=== PATIENT | female | born 1950 | race African-American/Black ===

== ENCOUNTER 2024-08-17 05:55 | Day surgery (SDC) | payer MEDICARE, BC, SELFPAY ==
[2024-08-17] VITALS (17 sets, daily range): BP systolic 103–151; BP diastolic 57–81; BMI 23.6
--- NOTE | 2024-08-17 10:08 | ITS.CL.ABL ---
[facility] - Ablation
Ablation
Procedure Report:
ELECTROPHYSIOLOGY ABLATION REPORT
Date of Procedure: August 17, 2024
Referring: Dr. Andre Tucker
INDICATION: Narrow complex tachycardia�long RP 130 bpm on telemetry with significant side effects and headaches from even low-dose metoprolol
HISTORY: As above
PROCEDURE:
Baseline intracardiac measurements were obtained in sinus rhythm.��HRA, HIS, RVA and CS catheters were placed.� 3D mapping with the multipolar catheter and the 4 mm tactic cath were utilized.
Atrial decremental extrastimuli were delivered from the HRA and the CS.��Single and double extrastimuli as well as burst pacing were performed from multiple atrial and ventricular sites..��Atrial and AVN antegrade ERP�s were determined.��Antegrade
as well as retrograde AVN [place] CL�s were determined.
MEASUREMENTS:
BASELINE
A-A:�1200
P-P:���1200
A-H:�86 ms
H-V����58 ms
P-R:���144 ms
QRS:�80 ms
QT:����380 ms
SNRT: Normal at 600 ms
AVN Wenckebach: 410 ms
AVN Fast Pathway ERP: 600�310 ms
AVN Slow Pathway ERP: 600�280 ms
HIS-Purkinje System: Normal; no distal block
Retrograde Conduction Decremental, Retrograde Block 410 ms
Evidence for tricuspid annulus atrial tachycardia as the tachycardia diagnosis included: (1)�inducible narrow complex tachycardia with a long RP and a broad based P wave which is superiorly directed suggesting a low lateral right atrial source.�
Cycle length was 460 ms.� Pacing from the ventricle at 420 ms demonstrated a true VA AV response demonstrating atrial tachycardia.� The tachycardia was incessant at the beginning of the procedure so we could not determine AV marc ERP or ventricular
ERP without induction of tachycardia baseline.� AV marc ERP and ventricular ERP were performed after ablation when the patient was noninducible.� We brought a multipolar catheter while on heparin up to the right atrium demonstrating the earliest
activation precoronary sinus catheter of approximately 60 to 70 ms in the low lateral tricuspid annulus at a 1-3 AV ratio.� QS in the unipolar in this region of breakout.� The breakout at the earliest endocardial region would suggest a mid
myocardial epicardial focus but unipolar recordings in the endocardial surface demonstrated QS.� The area of earliest activation was approximately 8-9 o'clock at the tricuspid annulus.
SVT was initiated by atrial and ventricular burst pacing
SVT could be terminated by atrial burst pacing and ablation or catheter pressure in this region
The SVT cycle length was 460 ms.; SVT was well-tolerated hemodynamically.
Radiofrequency Catheter Ablation:
Following determination of the SVT mechanism, isoproterenol was discontinued and baseline conditions were resumed.��
RF applications were delivered during ventricular pacing using a temperature controlled system.��RF application resulted in nearly immediate (2 seconds) elimination of the atrial tachycardia at the area of earliest activation.� Consolidation lesions
for a total of 11 minutes of radiofrequency energy were given in this region.� After the initial termination we were still able to induce 3-5 beats of nonsustained tachycardia which was earlier in this region although the earliest area of activation
migrated approximately 0.5 cm more superior and lateral to the initial site suggesting either separate breakout from an epicardial focus or slight migration in the tachycardia up the kylee terminalis.� Additional lesions were given in this region
rendering the patient noninducible over a 30-minute waiting period.
After a 30 minute waiting period, stimulation was repeated.��Midline retrograde activation was preserved during RV apical stimulation.
No sustained SVT was induced, a marked contrast to the pre-ablation situation.
COMPLICATIONS: None
SUMMARY: Status post ablation of a lateral tricuspid annulus atrial tachycardia as above
RECOMMENDATIONS:
1.� Given her medication intolerance we will discharge off of metoprolol therapy.� If she has further clinical tachyarrhythmias would consider low-dose calcium channel anshu given her headaches with beta-anshu therapy.� Could also consider
antiarrhythmic drug therapy although I would favor calcium channel anshu with any clinical recurrence as a first step
2.� Given location could consider the [employer] catheter with combination radiofrequency and PFA in this region at repeat procedure if she were to note clinical recurrence and/or side effects from medications
--- NOTE | 2024-08-17 11:00 | CM ---
Reviewed chart. Met with Mrs. Castano to review discharge plans. She states prior to admission she resides alone in a three story home,([facility] level ) with eight steps to enter. She states she has four steps to get to living room and then eight steps
to get to bedroom/full bathroom. She states she has a powder room in the basement. She states prior to admission she was independent with ambulation and adls. She states she does not have any DME in the home. She states she has a prescription
plan and uses [facility]. The discharge plan is to return home when medically stable.
--- NOTE | 2024-08-17 12:28 | PTCARENOTE ---
Rec'd pt from chemistry lab instructor. Tele- SB. HR 40-60s. B/l groin w/ fig 8 sutures; c/d/i. Activity restrictions reviewed w/ pt and verbalizes understanding. Assessment completed as documented. Oriented pt to room. Currently in bed; call bridget w/in reach.
[2024-08-17] MEDS: TYLENOL 650 MG PO (14:51)
--- NOTE | 2024-08-17 22:30 | PTCARENOTE ---
Received patient at change of shift. SR on the monitor, HR in the 60s. Bilateral groin dressings CDI and soft. No complaints from pt at this time, call gill within reach.
[2024-08-18 02:39] VITALS: BP 115/65
[2024-08-18] MEDS: TYLENOL 650 MG PO (02:42)
[2024-08-18 03:12] LABS: Hematocrit 31.6 % (37.0-47.0); Hemoglobin 10.5 g/dL (12.0-16.0); Mean Corp Hgb Conc. 33.2 g/dL (33.0-37.0); Mean Corpuscular Hgb 28.7 pg (27.0-31.0); Mean Corpuscular Volume 86.3 fL (81.0-99.0); Mean Platelet Volume 9.1 fL (7.4-10.4); Platelet Count 213 10^3/uL (130-400); Red Blood Cell Count 3.66 10^6/uL (4.20-5.40); Red Cell Dist. Width 14.6 % (11.5-14.5); White Blood Cell Count 7.6 10^3/uL (4.8-10.8)
[2024-08-18 03:37] LABS: Blood Urea Nitrogen 17 mg/dl (7-17); Calcium 8.5 mg/dl (8.4-10.2); Carbon Dioxide 25 mmol/L (22-30); Chloride 108 mmol/L (98-107); Estimated Creatinine Clearance 74 ml/min; Glucose 88 mg/dl (70-99); Potassium 4.4 mmol/L (3.5-5.1); Sodium 140 mmol/L (135-145); eGFR > 60.00
--- NOTE | 2024-08-18 06:58 | W.PN.CARDCBS ---
Addendum entered and electronically signed by Jayden Tirado MD 08/18/24 08:02:
Patient seen and examined
Agree with PA-C note and assessment
Agree with PA-C plan
Exam:
Telemetry reviewed sinus rhythm overnight
ECG reviewed
JVP 6
Cor regular no murmur
Lungs clear to auscultation bilaterally
Abdomen soft nontender positive bowel sounds
No extremity edema
Alert and orient x 3
PCP: Dr. Donovan
Stud Driver: Dr. Tucker
Impression:
SVT
s/p SVT ablation 08/17/2024HTN
HLD
Echo 04/13/2024: EF 60 to 65%, mild MR, mild TR, estimated PAP 32 mmHg
Plan:
-Underwent successful SVT ablation 08/17/2024 for lateral tricuspid annular AT.
-Remains in SR.
-Will discharge off metoprolol given intolerance w/ headaches. If recurrent tachyarrhythmias, would consider low dose CCB.
-BP and HR stable.
-OK for discharge
-Follow up with primary shelter advocate arranged.
Original Note:
Today's Communication / Plan
-
Appears well
Stable for discharge
Stop metoprolol
Follow up arranged.
Impression / Plan
-
PCP: Dr. Donovan
Stud Driver: Dr. Tucker
Impression:
SVT
s/p SVT ablation 08/17/2024
HTN
HLD
Echo 04/13/2024: EF 60 to 65%, mild MR, mild TR, estimated PAP 32 mmHg
Plan:
-Underwent successful SVT ablation 08/17/2024.
-Doing well overnight. no complaints.
-Remains in SR.
-Will discharge off metoprolol given intolerance w/ headaches. If recurrent tachyarrhythmias, would consider low dose CCB.
-BP and HR stable.
-OK for discharge
-Follow up with primary shelter advocate arranged.
Progress Note - Stud Driver
Subjective
Date of Service: August 18, 2024
Feeling well. no complaints overnight.
Objective
Labs:
08/18/24 02:58
08/18/24 02:58
Labs
Hgb 10.5 g/dL (12.0-16.0) L 08/18/24 02:58
Hct 31.6 % (37.0-47.0) L 08/18/24 02:58
Plt Count 213 10^3/uL (130-400) 08/18/24 02:58
Sodium 140 mmol/L (135-145) 08/18/24 02:58
Potassium 4.4 mmol/L (3.5-5.1) 08/18/24 02:58
BUN 17 mg/dl (7-17) 08/18/24 02:58
Creatinine 0.6 mg/dL (0.6-1.0) 08/18/24 02:58
Glucose 88 mg/dl (70-99) 08/18/24 02:58
Vital Signs and I&O:
Vital Signs
Temp Pulse Resp BP Pulse Ox
98 F 59 18 115/65 98
08/18/24 03:01 08/18/24 02:39 08/18/24 03:01 08/18/24 02:39 08/18/24 03:01
Vital Signs
Temp Pulse Resp BP Pulse Ox
98 F 59 18 115/65 98
08/18/24 03:01 08/18/24 02:39 08/18/24 03:01 08/18/24 02:39 08/18/24 03:01
Physical Exam
Physical Exam
GEN: No distress, awake, alert, oriented x3
HEENT: supple, anicteric, mmm
LUNGS: CTA b/l, no wheezes/rales
CV: Reg, S1/S2, no murmur
EXT: No clubbing or cyanosis, trace LLE nonpitting edema
NEURO: Gross non-focal
SKIN: Warm, dry, no rash
--- NOTE | 2024-08-18 07:31 | W.DS.TRANS ---
DC Summary - Track Repair Worker
-
Discharge Instructions:
Sleep Apnea Risk Low
Discharge Diagnosis/Procedures SVT, s/p ablation
Diet Low Cholesterol
Driving Restrictions No driving for 24 hours
Instructions:
Stand-Alone Forms: DC Instructions- Cath/EP Lab
Changes to Home Medications: Yes
Discharge Medications:
DC Medications w/original date entered in [employer]([facility])
atorvastatin 20 mg tablet 20 mg PO DAILY 08/17/24
dicyclomine 10 mg capsule 10 mg PO BID PRN as needed 08/17/24
linaclotide 72 mcg capsule (Linzess) 72 mcg PO DAILY PRN IBS 08/17/24
losartan 25 mg tablet 25 mg PO DAILY 08/17/24
mirtazapine 7.5 mg tablet 7.5 mg PO DAILY PRN as needed 08/17/24
Home Medication Changes
Metoprolol discontinued
Pending Results: No
[2024-08-18 08:00] VITALS: BP 115/61
[2024-08-18] MEDS: COZAAR 25 MG PO (08:00)
[2024-08-18] MEDS: LIPITOR 20 MG PO (08:00)
[2024-08-18 11:53] VITALS: BP 110/67
--- NOTE | 2024-08-18 12:10 | PTCARENOTE ---
IV and tele removed. Discharge instructions reviewed w/ pt and verbalizes understanding. Belongings collected and sent home w/ pt. Escorted via WC and staff assist. D/c to home w/ family members.
== END 2024-08-18 12:12 | disposition home or self-care (01) ==
LOC: CATH 05:55
PROVIDERS: Nurse Practitioner; ATTENDING PHYSICIAN Internal Medicine Cardiovascular Disease; FAMILY PHYSICIAN Family Medicine; OTHER PHYSICIAN Internal Medicine Cardiovascular Disease
DX: I47.19 Other supraventricular tachycardia (principal); I10 Essential (primary) hypertension; E78.5 Hyperlipidemia, unspecified; K58.9 Irritable bowel syndrome, unspecified; K86.2 Cyst of pancreas
CPT/HCPCS: C1732; C1894; C1766; C2630; C1730; 80048; 83735; 85027; 93005; 93653